=== PATIENT | female | born 2000 | race Caucasian/White ===

== ENCOUNTER 2023-06-23 12:22 | Outpatient (CLI) | payer BC, SELFPAY ==
[2023-06-23 19:28] LABS: Chlamydia DNA Amplified* NOT DETECTED (No Detected); GC DNA Amplified* NOT DETECTED (No Detected)
== END 2023-06-23 12:23 | disposition home or self-care (01) ==
PROVIDERS: PCP Nurse Practitioner Family; Visit Provider Physician Assistant
DX: Z11.3 Encounter for screening for infections with a predominantly sexual mode of transmission (principal)
CPT/HCPCS: 86592; 86703; 86803; 87340; 87491; 87591

== ENCOUNTER 2023-06-26 10:08 | Outpatient (CLI) | payer BC, SELFPAY | END 2023-06-26 10:09 | disposition home or self-care (01) | LOC: NFLDREF 07-02 15:59 | PROVIDERS: PCP Nurse Practitioner Family; Referring Provider Nurse Practitioner Family; Visit Provider Physician Assistant | DX: Z01.419 Encounter for gynecological examination (general) (routine) without abnormal findings (principal); Z13.6 Encounter for screening for cardiovascular disorders; Z13.1 Encounter for screening for diabetes mellitus | CPT/HCPCS: 80061; 82947 ==